=== PATIENT | female | born 1955 | race Caucasian/White ===

== ENCOUNTER → 2019-05-09 09:16 | Outpatient (CLI) | payer OTHER, SELFPAY ==
--- NOTE | 2019-05-09 | DI.MG.S_ITS ---
BILATERAL DIGITAL SCREENING MAMMOGRAM 3D/2D WITH CAD: 05/09/2019 CLINICAL: Routine screening. Comparison is made to exams dated: 02/19/2018 mammogram, 11/29/2016 mammogram, and 11/26/2015 mammogram - [facility]. The tissue of both breasts is heterogeneously dense. This may lower the sensitivity of mammography. Current study was also evaluated with a Computer Aided Detection (CAD) system. There is possible architectural distortion in the left breast middle depth central to the nipple seen on the craniocaudal view only. There are postsurgical changes of the left breast. No other significant masses, calcifications, or other findings are seen in either breast. IMPRESSION: INCOMPLETE: NEEDS ADDITIONAL IMAGING EVALUATION The possible architectural distortion in the left breast is indeterminate. Additional views with possible ultrasound are recommended. This exam was interpreted at Station ID: [id number]. NOTE: For mammograms, a report in lay terms will be sent to the patient. Approximately 15% of breast malignancies will not be visualized mammographically. In the management of a palpable breast mass, a negative mammogram must not discourage biopsy of a clinically suspicious lesion. Electronically Signed By: Everett Langford M.D. ecl/:05/10/2019 16:32:50 letter sent: Additional Imaging Needed ACR BI-RADS Category 0: Incomplete 3340F
== END ==
PROVIDERS: PCP Nurse Practitioner Family; Visit Provider Nurse Practitioner Family
DX: Z12.31 Encounter for screening mammogram for malignant neoplasm of breast (principal)
CPT/HCPCS: 77063; 77067

== ENCOUNTER → 2019-05-30 13:12 | Outpatient (CLI) | payer OTHER, SELFPAY ==
--- NOTE | 2019-05-30 | DI.US.S_ITS ---
LIMITED ULTRASOUND OF LEFT BREAST: 05/30/2019 CLINICAL: Patient returns today to evaluate architectural distortion in the left breast. Comparison is made to exams dated: 05/30/2019 mammogram, 05/09/2019 mammogram - [facility], 02/19/2018 mammogram, 11/29/2016 mammogram, and 11/26/2015 mammogram - [facility]. Color flow and real-time ultrasound of the left breast 11-1 o'clock, 5-7 o'clock, and retroareolar regions were performed. Alex scale images of the real-time examination were reviewed. No underlying breast mass or abnormality is identified. There is no ultrasound correlate for the previously noted architectural distortion in the left breast middle depth central to the nipple seen on the craniocaudal view only on comparison screening mammograms of 05/09/19, which also persisted on additional diagnostic mammogram views performed earlier today 05/30/19. IMPRESSION: INCOMPLETE: NEEDS ADDITIONAL IMAGING EVALUATION No ultrasound correlate for the previously noted architectural distortion in the left breast middle depth central to the nipple seen on the craniocaudal view only on comparison screening mammograms of 05/09/19, which also persisted on additional diagnostic mammogram views performed earlier today 05/30/19. This may be secondary to prior trauma, surgery, or infection, but an underlyng malignancy cannot be excluded. A breast MRI with contrast is recommended for further evaluation. This exam was interpreted at Station ID: [id number]. Electronically Signed By: Everett Langford M.D. ecl/:05/30/2019 15:00:41 letter sent: Need MRI Ultrasound BI-RADS: 0 Indeterminate
--- NOTE | 2019-05-30 | DI.MG.S_ITS ---
UNILATERAL LEFT DIGITAL DIAGNOSTIC MAMMOGRAM 3D/2D WITH ADDITIONAL VIEWS: 05/30/2019 CLINICAL: Additional evaluation requested from prior study. Comparison is made to exams dated: 05/09/2019 mammogram - [facility], 02/19/2018 mammogram, and 11/29/2016 mammogram - [facility]. The tissue of left breast is heterogeneously dense. This may lower the sensitivity of mammography. Previously identified architectural distortion in the left breast middle depth central to the nipple seen on the craniocaudal view only on comparison screening mammograms of 05/09/19 persists with additional views. This is best seen on [facility] tomosynthesis image 43/74. IMPRESSION: INCOMPLETE: NEEDS ADDITIONAL IMAGING EVALUATION Previously identified architectural distortion in the left breast middle depth central to the nipple seen on the craniocaudal view only on comparison screening mammograms of 05/09/19 persists with additional views. A targeted ultrasound is recommended for further evaluation, and will be performed immediately following this exam. This exam was interpreted at Station ID: [id number]. NOTE: For mammograms, a report in lay terms will be sent to the patient. Approximately 15% of breast malignancies will not be visualized mammographically. In the management of a palpable breast mass, a negative mammogram must not discourage biopsy of a clinically suspicious lesion. Electronically Signed By: Everett Langford M.D. ecl/:05/30/2019 14:04:37 ACR BI-RADS Category 0: Incomplete 3340F
== END ==
PROVIDERS: PCP Nurse Practitioner Family; Visit Provider Nurse Practitioner Family
DX: R92.8 Other abnormal and inconclusive findings on diagnostic imaging of breast (principal)
CPT/HCPCS: 76642; 77065; G0279

== ENCOUNTER → 2019-06-14 12:45 | Outpatient (CLI) | payer OTHER, SELFPAY ==
--- NOTE | 2019-06-14 | DI.MRI.S_ITS ---
BREAST MRI OF BOTH BREASTS- WITH CAD: 06/14/2019 CLINICAL: Left breast mass. Comparison is made to exams dated: 05/30/2019 ultrasound, 05/30/2019 mammogram, and 05/09/2019 mammogram - [facility]. Interpretation of this MRI was correlated with available mammograms and ultrasounds. Informed consent was obtained from the patient. 20 cc of ProHance (Gadoteridol) nonionic contrast was injected. Axial T1, T2, sagittal T1, and pre and post contrast T1 images were obtained with a dedicated breast coil. Post processing was performed including computer aided calculations of any tumor volumes and dimensions. There is mild background parenchymal enhancement. Right breast: No discrete mass or suspicious enhancement to suggest malignancy. Left breast: No discrete mass or abnormal enhancement demonstrated within the left breast to correlate with the area of architectural distortion seen on mammography. There are small curvilinear areas of intrinsic T1 hyperintensity in the retroareolar region without definite enhancement. Findings are suggestive of proteinaceous or blood products within non-distended retroareolar ducts. Miscellaneous: No axillary or internal mammary lymphadenopathy by size criteria. IMPRESSION: PROBABLY BENIGN 1. No evidence of malignancy in the right or left breast. Specifically, no discrete mass or abnormal enhancement demonstrated correlating to the architectural distortion on mammogram. Recommend followup mammography in 6 months to demonstrate stability. 2. Small amount of intrinsic T1 hyperintensity demonstrated within nondistended left which are low ducts. The findings are suggestive of proteinaceous or blood products. Recommend correlation clinically. A follow-up mammogram in 6 months is recommended to demonstrate stability. This exam was interpreted at Station ID: [id number]. Electronically Signed By: Chad Juares M.D. ddp/:06/14/2019 15:48:01 ACR BI-RADS Category 3: Probably benign 3343F
== END ==
PROVIDERS: PCP Nurse Practitioner Family; Visit Provider Nurse Practitioner Family
DX: R92.8 Other abnormal and inconclusive findings on diagnostic imaging of breast (principal); N63.20 Unspecified lump in the left breast, unspecified quadrant
CPT/HCPCS: 77049; A9579

== ENCOUNTER → 2020-01-07 12:30 | Outpatient (CLI) | payer OTHER, SELFPAY ==
--- NOTE | 2020-01-07 | DI.US.S_ITS ---
ULTRASOUND OF LEFT BREAST: 01/07/2020 CLINICAL: 6 month f/u. Comparison is made to exams dated: 01/07/2020 mammogram, 06/14/2019 breast MRI, 05/30/2019 ultrasound, 05/30/2019 mammogram, 05/09/2019 mammogram - [facility], and 02/19/2018 mammogram - [facility]. Real-time ultrasound of the left breast was performed. Alex scale images of the real-time examination were reviewed. No significant abnormalities were seen sonographically in the left breast. There was no mammographic abnormality on today's mammogram and no abnormalities seen on comparison MRI dated 06/14/2019. IMPRESSION: NEGATIVE There is no sonographic evidence of malignancy. There is no abnormality seen in the left breast to correspond with the previously described mammography finding in the upper aspect from comparison study in April 2019. This was further substantiated by negative breast MRI in May 2019 and now with negative mammographic and sonographic evaluation. This likely represents normal fibroglandular tissue. Return to annual bilateral mammogram screening schedule is recommended which is due in approximately 6 months. This exam was interpreted at Station ID: [id number]. Electronically Signed By: Shai Pyle M.D. aty/:01/07/2020 14:04:33 letter sent: Normal Exam Ultrasound BI-RADS: 1 Negative
--- NOTE | 2020-01-07 | DI.MG.S_ITS ---
UNILATERAL LEFT DIGITAL DIAGNOSTIC MAMMOGRAM 3D/2D SHORT-TERM FOLLOW-UP: 01/07/2020 CLINICAL: Patient returns for a 6 month follow up of the left breast. Comparison is made to exams dated: 06/14/2019 breast MRI, 05/30/2019 ultrasound, 05/30/2019 mammogram, and 05/09/2019 mammogram - [facility]. The tissue of left breast is heterogeneously dense. This may lower the sensitivity of mammography. The possible architectural distortion in the left breast anterior depth central to the nipple seen on the craniocaudal view only is not appreciated on today's imaging, and most likely represented fibroglandular tissue. There was no correlate seen on the prior ultrasound or breast MRI. No other significant masses or calcifications are seen in the breast. IMPRESSION: INCOMPLETE: NEEDS ADDITIONAL IMAGING EVALUATION An ultrasound is recommended for further evaluation and to confirm this no longer visualized finding. This is scheduled to immediately follow this study. This exam was interpreted at Station ID: [id number]. NOTE: For mammograms, a report in lay terms will be sent to the patient. Approximately 15% of breast malignancies will not be visualized mammographically. In the management of a palpable breast mass, a negative mammogram must not discourage biopsy of a clinically suspicious lesion. Electronically Signed By: Shai Pyle M.D. aty/:01/07/2020 13:06:47 ACR BI-RADS Category 0: Incomplete 3340F
== END ==
PROVIDERS: PCP Nurse Practitioner Family; Referring Provider Internal Medicine; Visit Provider Internal Medicine
DX: R92.8 Other abnormal and inconclusive findings on diagnostic imaging of breast (principal)
CPT/HCPCS: 76642; 77065; G0279

== ENCOUNTER → 2020-06-08 08:21 | Outpatient (CLI) | payer OTHER, SELFPAY ==
[2020-06-08 11:50] LABS: COVID19 -Nasal RAPID Negative (Negative)
== END ==
PROVIDERS: PCP Nurse Practitioner Family; Visit Provider Physician Assistant
DX: Z11.59 Encounter for screening for other viral diseases (principal)
CPT/HCPCS: 87635

== ENCOUNTER → 2020-06-11 13:33 | Outpatient (CLI) | payer OTHER, SELFPAY ==
--- NOTE | 2020-06-11 | DI.ECHO.S_ITS ---
[facility]---------+ [facility] +---------+ : : [address] : [place] [address] : : : : [id number] : : : : Phone: [phone]+ Echocardiogram Report + + :Name: PAOLA RUIZ Study Date: 06/11/2020 Height: 65 in : :[facility] Weight: 200 lb : : Gender: Female BSA: 2.0 m2 : :: 1955 Age: 64 yrs BP: 142/92 mmHg: :Reason For Study: HYPERTENSION : :Ordering Physician: ROSALBA, : :DOLORES Performed By: Lorena Tello : :Referring: DOLORES NAVARRETE : + + Interpretation Summary Normal sinus rhythm. Normal LV size, wall thickness, wall motion and LV systolic function. EF is 60-65%. Normal chamber sizes. No significant valvualr abnormalities. No prior study available for comparison. No evidence of hypertensive heart disease. Procedure: A two-dimensional transthoracic echocardiogram with color flow and Doppler was performed. The study quality was technically adequate. There is no prior echocardiogram noted for this patient. The patient was in sinus bradycardia with heart rates between 52-60 bpm during the exam. Left Ventricle: The left ventricle is normal in size and wall thickness. The ejection fraction is estimated to be 60-65%. Diastolic parameters suggest probable normal left ventricular diastolic function and normal filling pressures. Right Ventricle: The right ventricle is normal in size and function. Atria: Both atria are normal in size. There is no Doppler evidence for an interatrial shunt. Mitral Valve: The mitral valve is normal in structure and function. There is trace mitral regurgitation. Aortic Valve: The aortic valve is trileaflet. The aortic valve opens well. There is no aortic valve stenosis. No aortic regurgitation is present. Tricuspid Valve: The tricuspid valve is normal in structure and function. The right ventricular systolic pressure is estimated to be at least 23 mmHg based on an estimated right atrial pressure of 3 mm Hg. There is mild tricuspid regurgitation. Pulmonic Valve: The pulmonic valve is not well visualized. There is trace pulmonic regurgitation. Great Vessels: The aortic root is normal size. The dimensions of the ascending aorta are normal. The IVC is of normal diameter and collapses greater than 50% with a sniff. This suggests a low right atrial pressure of 3 mm Hg. Pericardium/ Pleura There is no pericardial effusion. There is no pleural effusion. MMode/2D Measurements & Calculations LVIDd: 4.3 cm LVOT diam: 2.2 cm LVIDs: 3.2 cm Ao root diam: 3.1 cm FS: 25.6 % asc Aorta Diam: 3.1 cm EPSS: 0.80 cm Ao Arch Diam (Prox Trans): 2.5 cm IVSd: 0.83 cm LVPWd: 0.99 cm LV barclay. diameter/BSA (cm/m^2): 2.2 LV sys. diameter/BSA (cm/m^2): 1.6 LA A2 area: 20.4 cm2 RA long axis: 5.1 cm LA A4 area: 15.6 cm2 RA area: 14.3 cm2 LA length (vol): 4.7 cm RA vol: 34.5 ml LA vol: 57.7 ml RA : 17.4 ml/m2 LA vol index: 29.2 ml/m2 IVC diam: 1.3 cm RVD1 (basal): 3.9 cm TAPSE: 2.3 cm Doppler Measurements & Calculations Ao V2 max: 150.7 cm/sec LVOT Max Rusty: 92.5 cm/sec Ao V2 mean: 93.5 cm/sec LV V1 max P.4 mmHg Ao max P.1 mmHg LV V1 VTI: 20.6 cm Ao mean P.1 mmHg RADHA(I,D): 2.6 cm2 Ao V2 VTI: 31.0 cm RADHA(V,D): 2.4 cm2 sev ratio: 0.66 RADHA indexed to BSA (cm^2/m^2): 1.3 MV E max rusty: 56.8 cm/sec TR max rusty: 223.8 cm/sec MV A max rusty: 65.6 cm/sec TR max P.0 mmHg MV E/A: 0.87 PA V2 max: 79.8 cm/sec Med Peak E' Rusty: 6.2 cm/sec PA V2 mean: 54.7 cm/sec E/E' med: 9.2 PA mean P.3 mmHg Lat Peak E' Rusty: 8.6 cm/sec PA pr(Accel): 12.2 mmHg E/E' lat: 6.6 E/e' average: 7.9 MV dec time: 0.22 sec SV(LVOT): 79.7 ml Electronically signed by: Leidy Workman M.D. on Reading Physician:06/12/2020 06:54 AM
--- NOTE | 2020-06-11 | DI.NM.S_ITS ---
PROCEDURE: NM EXERCISE TREADMILL NON NUC COMPARISON: None. INDICATIONS: Essential (primary) hypertension FINDINGS:the patient exercised for 10 minutes and 7 seconds reaching 12.8 METs, ADIN -56%. 109% of maximum predicted heart rate reached. Appropriate BP response to exercise. No angina during the study. Very mild upsloping ST depressions in the anterolateral leads during recovery. IMPRESSION: Low risk, probably normal study 1) No diagnostic ECG evidence of ischemia. Very mild upsloping ST depressions in the anterolateral leads during recovery, which are non-specific. 2) No angina during the study. 3) Excellent exercise capacity (12.8 METs, ADIN -56%). Target heart rate reached. Appropriate BP response to exercise. 4) No prior nuclear stress test available for comparison. Dictated by: Heladio Lao MD on 06/11/2020 at 17:15 Approved by: Heladio Lao MD on 06/11/2020 at 17:18
== END ==
PROVIDERS: PCP Internal Medicine; Referring Provider Internal Medicine; Visit Provider Internal Medicine
DX: I07.1 Rheumatic tricuspid insufficiency (principal); I10 Essential (primary) hypertension; R06.09 Other forms of dyspnea; R01.1 Cardiac murmur, unspecified; E78.5 Hyperlipidemia, unspecified
CPT/HCPCS: 93017; 93306

== ENCOUNTER → 2020-07-23 08:19 | Outpatient (CLI) | payer OTHER, SELFPAY ==
--- NOTE | 2020-07-23 08:21 | DI.MG.S_ITS ---
BILATERAL DIGITAL SCREENING MAMMOGRAM 3D/2D WITH CAD: 07/23/2020 CLINICAL: Routine screening. Comparison is made to exams dated: 05/09/2019 mammogram - [facility], 02/19/2018 mammogram, and 11/29/2016 mammogram - [facility]. The tissue of both breasts is heterogeneously dense. This may lower the sensitivity of mammography. Current study was also evaluated with a Computer Aided Detection (CAD) system. No significant masses, calcifications, or other findings are seen in either breast. There has been no significant interval change. IMPRESSION: NEGATIVE There is no mammographic evidence of malignancy. A 1 year screening mammogram is recommended. This exam was interpreted at Station ID: [id number]. NOTE: For mammograms, a report in lay terms will be sent to the patient. Approximately 15% of breast malignancies will not be visualized mammographically. In the management of a palpable breast mass, a negative mammogram must not discourage biopsy of a clinically suspicious lesion. Electronically Signed By: Mejia Rios acr/penrad:07/23/2020 08:49:23 letter sent: Normal Exam ACR BI-RADS Category 1: Negative 3341F
== END ==
PROVIDERS: PCP Internal Medicine; Referring Provider Internal Medicine; Visit Provider Internal Medicine
DX: Z12.31 Encounter for screening mammogram for malignant neoplasm of breast (principal)
CPT/HCPCS: 77063; 77067

== ENCOUNTER → 2021-02-10 10:03 | Outpatient (CLI) | payer MEDICARE, OTHER, SELFPAY | PROVIDERS: PCP Internal Medicine; Referring Provider Internal Medicine; Visit Provider Internal Medicine | DX: Z78.0 Asymptomatic menopausal state (principal); Z82.62 Family history of osteoporosis | CPT/HCPCS: 77080 ==

== ENCOUNTER → 2021-08-19 12:30 | Outpatient (CLI) | payer MEDICARE, OTHER, SELFPAY ==
--- NOTE | 2021-08-19 12:31 | DI.MG.S_ITS ---
BILATERAL DIGITAL SCREENING MAMMOGRAM 3D/2D WITH CAD: 08/19/2021 CLINICAL: Routine screening. Comparison is made to exams dated: 07/23/2020 mammogram, 01/07/2020 mammogram, 05/30/2019 ultrasound, and 05/09/2019 mammogram - [facility]. The tissue of both breasts is heterogeneously dense. This may lower the sensitivity of mammography. Current study was also evaluated with a Computer Aided Detection (CAD) system. No significant masses, calcifications, or other findings are seen in either breast. There has been no significant interval change. IMPRESSION: NEGATIVE There is no mammographic evidence of malignancy. A 1 year screening mammogram is recommended. This exam was interpreted at Station ID: [id number]. NOTE: For mammograms, a report in lay terms will be sent to the patient. Approximately 15% of breast malignancies will not be visualized mammographically. In the management of a palpable breast mass, a negative mammogram must not discourage biopsy of a clinically suspicious lesion. Electronically Signed By: Chad peñaloza/munir:08/19/2021 14:59:52 letter sent: Normal Exam ACR BI-RADS Category 1: Negative 3341F
== END ==
PROVIDERS: PCP Internal Medicine; Referring Provider Internal Medicine; Visit Provider Internal Medicine
DX: Z12.31 Encounter for screening mammogram for malignant neoplasm of breast (principal)
CPT/HCPCS: 77063; 77067

== ENCOUNTER → 2022-08-25 09:54 | Outpatient (CLI) | payer MEDICARE, OTHER, SELFPAY ==
--- NOTE | 2022-08-25 | DI.MG.S_ITS ---
BILATERAL DIGITAL SCREENING MAMMOGRAM 3D/2D WITH CAD: 08/25/2022 CLINICAL: Routine screening. Comparison is made to exams dated: 08/19/2021 mammogram, 07/23/2020 mammogram, and 05/09/2019 mammogram - [facility]. Both breasts are heterogeneously dense, which may obscure small masses (category c / 51-75% glandular tissue). Current study was also evaluated with a Computer Aided Detection (CAD) system. No significant masses, calcifications, or other findings are seen in either breast. There has been no significant interval change. IMPRESSION: NEGATIVE There is no mammographic evidence of malignancy. A 1 year screening mammogram is recommended. Based on the Tyrer Cuzick model (a risk assessment model) the patient's lifetime risk is 11.0% and her 10 year risk is 5.6%. According to the ACR, ACS, and NCCN guidelines, an annual breast MRI exam along with mammogram is recommended if the patient's lifetime risk is 20% or greater. This exam was interpreted at Station ID: [id number]. NOTE: For mammograms, a report in lay terms will be sent to the patient. Approximately 15% of breast malignancies will not be visualized mammographically. In the management of a palpable breast mass, a negative mammogram must not discourage biopsy of a clinically suspicious lesion. Electronically Signed By: Gurpreet hines/munir:08/25/2022 12:40:45 letter sent: Normal Exam ACR BI-RADS Category 1: Negative 3341F
== END ==
PROVIDERS: PCP Internal Medicine; Referring Provider Internal Medicine; Visit Provider Internal Medicine
DX: Z12.31 Encounter for screening mammogram for malignant neoplasm of breast (principal)
CPT/HCPCS: 77063; 77067

== ENCOUNTER 2023-08-21 11:59 | Day surgery (SDC) | payer MEDICARE, OTHER, SELFPAY ==
[2023-08-21 12:31] VITALS: BP 140/80; PULSE 85; RESP 17; TEMP 36.8; O2SAT 98
[2023-08-21] MEDS: LACTATED RINGERS 1,000 ML 42 ML IV (12:41)
--- NOTE | 2023-08-21 13:18 | P.HP_ITS ---
History of Present Illness History of Present Illness Date Patient Seen: 08/21/23 Time Patient Seen: 13:18 Chief complaint: Colonoscopy Narrative: Quiana is a 67-year-old woman who is here for a colonoscopy due to rectal bleeding. See the office note from June for details. She increase her dietary fiber after that visit and has had no more symptoms since then. She does have a family history of colon cancer. COUNT INCLUDES THE [facility] Medical History (Updated 07/19/23 @ 15:26 by Dino Carty MD) History of bladder cancer Hyperlipemia Hypertension Family History (Updated 07/19/23 @ 15:06 by Reilly Costa RN) Father Hypertension Heart disease Cancer Sister Hypertension Social History Smoking Status: Never smoker alcohol intake: current Meds Home Medications and Allergies Home Medications Medication Instructions Recorded Confirmed Type atorvastatin 10 mg tablet 10 mg PO DAILY 07/19/23 08/21/23 History hydrochlorothiazide 25 mg tablet 25 mg PO DAILY 07/19/23 08/21/23 History Allergies Allergy/AdvReac Type Severity Reaction Status Date / Time Sulfa (Sulfonamide Allergy Rash Verified 08/21/23 12:45 Antibiotics) Exam Vital Signs (past 8 hours): - 08/21/23 12:31 08/21/23 12:31 Temperature 98.2 F Pulse Rate 85 Respiratory Rate 17 Blood Pressure 140/80 Pulse Oximetry 98 Oxygen Delivery Method Room Air Room Air Oxygen Delivery Method Room Air Const General: healthy appearing Assessment & Plan Assessment and plan (1) Family history of colon cancer: Status: Acute Plan 67-year-old woman with rectal bleeding and a family history of colon cancer. We reviewed the risks and benefits of colonoscopy and she would like to proceed.
--- NOTE | 2023-08-21 13:41 | PM.OP.COLON ---
Operative Date/Time/Diagnoses Date of procedure: 08/21/23 Time of procedure: 13:41 Pre-op diagnosis: Rectal bleeding and family history of colon cancer Post-op diagnosis: same Procedure & Clinicians Study performed: Colonoscopy Same procedure as scheduled: Yes Surgeon: Dino Carty Procedure Notes Procedure in detail: Surgeon: Dino Carty MD Anesthesia: Deedee Guzman CRNA Procedure: The patient was brought to the endoscopy suite, placed in left lateral decubitus position. The patient was connected to monitoring devices. A time-out was performed. Sedation was administered. Once the patient was adequately sedated, a digital rectal exam was performed and was normal. The scope was then inserted and advanced to the cecum where the appendiceal orifice was identified and photographed. The scope was then slowly withdrawn over greater than 6 minutes. The mucosa was thoroughly inspected. No abnormalities were seen. The scope was retroflexed in the rectum. There were mild internal hemorrhoids. The scope was straightened and removed. The patient was awakened and brought to recovery. Scope withdrawal time: 7 minutes Sedation time: 13 minutes EBL: 0 Findings: Internal hemorrhoids Post-procedure Recommendations: Colonoscopy in 5 years Disposition: PACU
[2023-08-21 13:43] VITALS: BP 113/51; PULSE 70; RESP 13; TEMP 36.4; O2SAT 97
[2023-08-21 13:47] VITALS: BP 95/48; PULSE 62; RESP 16; O2SAT 96
[2023-08-21 13:51] VITALS: BP 107/65; PULSE 57; RESP 18; TEMP 36.3; O2SAT 100
[2023-08-21 13:54] VITALS: BP 119/67; PULSE 54; RESP 16; O2SAT 99
== END 2023-08-21 14:11 | disposition home or self-care (01) ==
PROVIDERS: PCP Internal Medicine; Referring Provider Surgery; Visit Provider Surgery
PROC: 0DJD8ZZ Inspection of Lower Intestinal Tract, Via Natural or Artificial Opening Endoscopic (ICD-10-PCS; CPT 45378; principal; 2023-08-21 13:15)
DX: K62.5 Hemorrhage of anus and rectum (principal); Z80.0 Family history of malignant neoplasm of digestive organs; K64.8 Other hemorrhoids
CPT/HCPCS: 45378; J2704

== ENCOUNTER → 2023-08-28 07:41 | Outpatient (CLI) | payer MEDICARE, OTHER, SELFPAY ==
--- NOTE | 2023-08-28 | DI.MG.S_ITS ---
BILATERAL DIGITAL SCREENING MAMMOGRAM 3D/2D WITH CAD: 08/28/2023 CLINICAL: Routine screening. Comparison is made to exams dated: 08/25/2022 mammogram, 08/19/2021 mammogram, and 07/23/2020 mammogram - [facility]. Both breasts are heterogeneously dense, which may obscure small masses (category c / 51-75% glandular tissue). Current study was also evaluated with a Computer Aided Detection (CAD) system. No significant masses, calcifications, or other findings are seen in either breast. There has been no significant interval change. IMPRESSION: NEGATIVE There is no mammographic evidence of malignancy. A 1 year screening mammogram is recommended. Based on the Tyrer Cuzick model (a risk assessment model) the patient's lifetime risk is 10.4% and her 10 year risk is 5.5%. According to the ACR, ACS, and NCCN guidelines, an annual breast MRI exam along with mammogram is recommended if the patient's lifetime risk is 20% or greater. This exam was interpreted at Station ID: [id number]. NOTE: For mammograms, a report in lay terms will be sent to the patient. Approximately 15% of breast malignancies will not be visualized mammographically. In the management of a palpable breast mass, a negative mammogram must not discourage biopsy of a clinically suspicious lesion. Electronically Signed By: Alethea iqbal/munir:08/28/2023 13:27:08 letter sent: Normal Exam ACR BI-RADS Category 1: Negative 3341F
== END ==
LOC: MAMMO 07:41
PROVIDERS: PCP Internal Medicine; Referring Provider Family Medicine; Visit Provider Internal Medicine
DX: Z12.31 Encounter for screening mammogram for malignant neoplasm of breast (principal); R92.333 Mammographic heterogeneous density, bilateral breasts
CPT/HCPCS: 77063; 77067

== ENCOUNTER → 2024-04-19 12:22 | Outpatient (CLI) | payer MEDICARE, OTHER, SELFPAY ==
--- NOTE | 2024-04-19 12:24 | DI.RAD.S_ITS ---
PROCEDURE: FL JOINT INJECTION LARGE LT INDICATIONS: arthritis left hip COMPARISON: None. TECHNIQUE: The indications, alternatives, benefits, risks, and complications of the procedure were explained to the patient. Written informed consent was obtained and placed in the chart. The patient was placed in an appropriate position on the fluoroscopy table, and a site was chosen for percutaneous access under fluoroscopic guidance. The site was prepped and draped in a sterile fashion. Local anesthetic was administered using a 1% lidocaine solution. A hypodermic or spinal needle was then used to access the symptomatic joint. Intra-articular location of the needle tip was confirmed by injecting a small amount of contrast, followed by steroid administration. The needle was then withdrawn, and a bandage applied to the puncture site. FINDINGS: Joint injected: Left hip Medications injected: As requested by ordering team Patient's pain before injection: 3 with sitting, 7-8 with leg lifting / 10 Patient's pain after injection: 0 out of 10. Complications: None. IMPRESSION: Successful fluoroscopically guided administration of steroid and anaesthetic solution into the left hip joint. Dictated by: Douglas Melchor M.D. on 04/19/2024 at 16:00 Approved by: Douglas Melchor M.D. on 04/19/2024 at 16:02
[2024-04-19] MEDS: LIDOCAINE 1% 20 ML INJ (14:13)
[2024-04-19] MEDS: TRIAMCINOLONE 40 MG/ML VIAL INTRA-ARTI (14:14)
[2024-04-19] MEDS: ROPIVACAINE 0.5% PF 5 MG/ML 20ML VIAL 20 ML INJ (14:14)
== END ==
LOC: RAD 12:23
PROVIDERS: PCP Internal Medicine; Referring Provider Orthopaedic Surgery; Visit Provider Orthopaedic Surgery
DX: M16.12 Unilateral primary osteoarthritis, left hip (principal)
CPT/HCPCS: 20610; 77002; Q9967

== ENCOUNTER → 2024-09-11 15:17 | Outpatient (CLI) | payer MEDICARE, OTHER, SELFPAY ==
--- NOTE | 2024-09-11 15:18 | DI.MG.S_ITS ---
BILATERAL DIGITAL SCREENING MAMMOGRAM 3D/2D WITH CAD: 09/11/2024 CLINICAL: Routine screening. Comparison is made to exams dated: 08/28/2023 mammogram, 08/25/2022 mammogram, and 08/19/2021 mammogram - [facility]. The breasts are heterogeneously dense, which may obscure small masses (category c / 51-75% glandular tissue). Current study was also evaluated with a Computer Aided Detection (CAD) system. No significant masses, calcifications, or other findings are seen in either breast. There has been no significant interval change. IMPRESSION: NEGATIVE There is no mammographic evidence of malignancy. A 1 year screening mammogram is recommended. Based on the Tyrer Cuzick model (a risk assessment model) the patient's lifetime risk is 9.9% and her 10 year risk is 5.5%. According to the ACR, ACS, and NCCN guidelines, an annual breast MRI exam along with mammogram is recommended if the patient's lifetime risk is 20% or greater. This exam was interpreted at Station ID: [id number]. NOTE: For mammograms, a report in lay terms will be sent to the patient. Approximately 15% of breast malignancies will not be visualized mammographically. In the management of a palpable breast mass, a negative mammogram must not discourage biopsy of a clinically suspicious lesion. Electronically Signed By: Shai [email or web address]/[email or web address]:09/12/2024 08:16:24 letter sent: Normal Exam ACR BI-RADS Category 1: Negative
== END ==
PROVIDERS: PCP Family Medicine; Referring Provider Internal Medicine; Visit Provider Internal Medicine
DX: Z12.31 Encounter for screening mammogram for malignant neoplasm of breast (principal); R92.333 Mammographic heterogeneous density, bilateral breasts
CPT/HCPCS: 77063; 77067